=== PATIENT | male | born 1950 | race African-American/Black ===

== ENCOUNTER 2025-04-22 16:16 | Inpatient (IN) | payer OTHER ==
[~2025-04-22] VITALS: Ht 188 cm; Wt 104.4 kg
[~2025-04-22 16:16] MED LIST: insulin
[2025-04-22 16:19] VITALS: O2SAT 100
[2025-04-22 16:49] LABS: BG DEOXYHEMOGLOBIN 24.6 % (0.0-5.0)
[2025-04-22] MEDS: SODIUM CHLORIDE 0.9% 1,000 ML IV ONE (16:55)
[2025-04-22 17:26] LABS: HEMATOCRIT. 42.5 % (42.0-52.0); HEMOGLOBIN. 13.4 g/dL (14.0-18.0); MEAN PLATELET VOLUME 9.1 fl (7.4-10.4); PLATELET 299 x1000/uL (130-400); RED BLOOD CELL COUNT 4.65 mill/uL (4.7-6.1); RED CELL DISTRIBUTION WIDTH 16.0 % (11.6-14.6)
[2025-04-22 17:44] LABS: CREATININE 2.6 mg/dL (0.6-1.3); PROTEIN TOTAL 6.9 g/dL (6.0-8.3); UREA NITROGEN BLOOD 38 mg/dL (9-23)
[2025-04-22 17:45] LABS: ASPARTATE AMINOTRANSFERASE 44 IU/L (<34); TROPONIN I HIGH SENSITIVITY 13 ng/L (3.0-53)
[2025-04-22 17:46] LABS: BILIRUBIN DIRECT 0.2 mg/dL (<=3.0); BILIRUBIN TOTAL 0.5 mg/dL (0.1-1.0); INR 1.1
[2025-04-22] MEDS ORDERED: POTASSIUM CHLORIDE 40 MEQ in SODIUM CHLORIDE 0.9% 230 ML IV PRN ×2 (18:00→21:30)
[2025-04-22] MEDS ORDERED: MAGNESIUM 2 G PREMIX 50 ML IV PRN ×3 (18:00→21:30)
[2025-04-22] MEDS ORDERED: DEXTROSE 50% WATER 50ML SYRINGE IV PRN ×3 (18:00→21:30)
[2025-04-22] MEDS ORDERED: BLOOD SUGAR DIAGNOSTIC STRIP TEST PRN ×3 (18:00→21:30)
[2025-04-22] MEDS ORDERED: CEFTRIAXONE 1GM/50ML 50 ML IV ONE (18:00)
[2025-04-22] MEDS ORDERED: INSULIN REGULAR (DRIP) 100 UNITS in SODIUM CHLORIDE 0.9% 99 ML IV SCH ×2 (18:00→21:30)
[2025-04-22] MEDS: DEXT 5%/LACTATED RINGERS 1,000 ML IV SCH (18:00)
[2025-04-22] MEDS ORDERED: KCL 20MEQ/100ML PREMIX 100 ML IV PRN ×2 (18:00→21:30)
[2025-04-22] MEDS ORDERED: SODIUM PHOSPHATE 15 MMOL in SODIUM CHLORIDE 0.9% 245 ML IV PRN ×2 (18:00→21:30)
[2025-04-22] MEDS ORDERED: INSULIN REGULAR 100U/100ML PMX 100 ML IV SCH (18:30)
[2025-04-22] MEDS: INSULIN REGULAR (DRIP) 100 UNITS in SODIUM CHLORIDE 0.9% 99 ML IV SCH (18:58)
[2025-04-22] MEDS: BLOOD SUGAR DIAGNOSTIC STRIP TEST SCH ×2 (19:08→23:43)
[2025-04-22 19:09] LABS: BAND% 1.0 % (1.0-6.0); LYMPHOCYTES % MANUAL 4.0 % (20.0-50.0); MONOCYTES % MANUAL 6.0 % (2.0-8.0); NEUTROPHILS % MANUAL 89.0 % (45.0-75.0); PLATELET ESTIMATE NORMAL
[2025-04-22] MEDS: CEFTRIAXONE 1GM/50ML 50 ML IV SCH (19:13)
[2025-04-22] MEDS: INSULIN REGULAR (HUMULIN R) 1000UNITS/10ML VIAL IV ONE (19:18)
[2025-04-22] MEDS: LACTATED RINGERS 1,000 ML IV SCH (19:52)
[2025-04-22] MEDS ORDERED: CLONIDINE 0.1MG TABLET PO PRN (21:15)
[2025-04-22] MEDS ORDERED: IPRATROPIUM/ALBUTEROL 0.5-3(2.5)MG/3ML NEB HHN PRN (21:15)
[2025-04-22] MEDS ORDERED: ONDANSETRON HCL 4MG/2ML INJ IV PRN (21:15)
[2025-04-22] MEDS ORDERED: GUAIFENESIN 200MG/10ML SUGAR FREE UDC PO PRN (21:15)
[2025-04-22] MEDS ORDERED: DOCUSATE SODIUM 100MG CAPSULE PO PRN (21:15)
[2025-04-22] MEDS ORDERED: ACETAMINOPHEN 325MG TABLET PO PRN (21:15)
[2025-04-22] MEDS ORDERED: SODIUM CHLORIDE 0.9% 1,000 ML IV SCH ×2 (21:30)
[2025-04-22] MEDS ORDERED: DEXT 5%/0.9% NACL 1,000 ML IV SCH (21:30)
[2025-04-22] MEDS ORDERED: IPRATROPIUM/ALBUTEROL 0.5-3(2.5)MG/3ML NEB NEB PRN (21:30)
[2025-04-22] MEDS ORDERED: BLOOD SUGAR DIAGNOSTIC STRIP TEST SCH (21:30)
[2025-04-22] MEDS ORDERED: AZITHROMYCIN 500MG/250ML 250 ML IV SCH (21:45)
[2025-04-22 22:08] LABS: BG BASE EXCESS -20.7 mmol/L (-2.0-3.0); BG CARBOXYHEMOGLOBIN 0.5 % (0.5-1.5); BG DEOXYHEMOGLOBIN 1.2 % (0.0-5.0); BG FLOW(L/min) 2.00 L/min; BG FRACTION INSPIRED OXYGEN 28; BG HCO3 ACT 4.1 mmol/L (21.0-28.0); BG METHEMOGLOBIN 0.0 % (0.5-1.5); BG OXYGEN SATURATION 98.8 % (94.0-98.0); BG OXYHEMOGLOBIN 98.3 % (94.0-98.0); BG PCO2 10.2 mmHg (35.0-48.0); BG PH 7.219 (7.350-7.450); BG PO2 139.3 mmHg (83.0-108.0); BG SAMPLE SITE RIGHT RADIAL; BG TOTAL HEMOGLOBIN 13.9 g/dL (13.5-17.5); BG VENT MODE NASAL CANNULA
[2025-04-22 23:30] VITALS: BP 126/69; PULSE 95; RESP 18; O2SAT 100
[2025-04-22 23:45] VITALS: PULSE 96; RESP 25; O2SAT 100
[2025-04-22] MEDS: PANTOPRAZOLE SODIUM 40 MG/VIAL IV SCH (23:49)
[2025-04-22] MEDS: ENOXAPARIN 30MG/0.3ML SYR SUBCUT SCH (23:49)
[2025-04-23] VITALS (76 sets, daily range): BP systolic 108–175; BP diastolic 60–158; PULSE 77–98; RESP 11–25; TEMP 36.4–36.974; O2SAT 92–100
[2025-04-23] MEDS: DEXT 5%/0.9% NACL 1,000 ML IV SCH (00:07)
[2025-04-23] MEDS: CEFTRIAXONE 2GM/50ML 50 ML IV SCH (01:50)
[2025-04-23] MEDS: KCL 20MEQ/100ML PREMIX 100 ML IV PRN (02:13)
[2025-04-23 02:15] LABS: TROPONIN I HIGH SENSITIVITY 28 ng/L (3.0-53)
[2025-04-23 02:16] LABS: PHOSPHORUS 4.3 mg/dL (2.5-4.9)
[2025-04-23] MEDS: INSULIN REGULAR (DRIP) 100 UNITS in SODIUM CHLORIDE 0.9% 99 ML IV SCH (04:37)
[2025-04-23 05:13] LABS: BG BASE EXCESS -3.6 mmol/L (-2.0-3.0); BG CARBOXYHEMOGLOBIN 0.2 % (0.5-1.5); BG DEOXYHEMOGLOBIN 1.8 % (0.0-5.0); BG FLOW(L/min) 3.00 L/min; BG FRACTION INSPIRED OXYGEN 32; BG HCO3 ACT 20.4 mmol/L (21.0-28.0); BG METHEMOGLOBIN 0.0 % (0.5-1.5); BG OXYGEN SATURATION 98.2 % (94.0-98.0); BG OXYHEMOGLOBIN 98.0 % (94.0-98.0); BG PCO2 33.6 mmHg (35.0-48.0); BG PH 7.401 (7.350-7.450); BG PO2 104.0 mmHg (83.0-108.0); BG SAMPLE SITE RIGHT RADIAL; BG TOTAL HEMOGLOBIN 13.3 g/dL (13.5-17.5); BG VENT MODE NASAL CANNULA
[2025-04-23 05:48] LABS: HEMATOCRIT. 38.1 % (42.0-52.0); HEMOGLOBIN. 12.2 g/dL (14.0-18.0); MEAN PLATELET VOLUME 8.1 fl (7.4-10.4); PLATELET 249 x1000/uL (130-400); RED BLOOD CELL COUNT 4.32 mill/uL (4.7-6.1); RED CELL DISTRIBUTION WIDTH 15.2 % (11.6-14.6)
[2025-04-23 05:59] LABS: CREATINE KINASE MB FRACTION 27.1 ng/mL (0.5-3.6)
[2025-04-23 06:01] LABS: CREATININE 2.3 mg/dL (0.6-1.3); PROTEIN TOTAL 5.7 g/dL (6.0-8.3)
[2025-04-23 06:03] LABS: ASPARTATE AMINOTRANSFERASE 43 IU/L (<34); BILIRUBIN DIRECT 0.1 mg/dL (<=3.0); TRIGLYCERIDE 74 mg/dL (0-150); UREA NITROGEN BLOOD 36 mg/dL (9-23)
[2025-04-23 06:04] LABS: LDL CHOLESTEROL 66 mg/dL (5-100); T4 FREE 1.00 ng/dL (0.89-1.76)
[2025-04-23 06:05] LABS: BILIRUBIN TOTAL 0.3 mg/dL (0.1-1.0); PHOSPHORUS 2.8 mg/dL (2.5-4.9)
[2025-04-23] MEDS: MULTIVITAMINS,THER W-MINERALS TABLET PO SCH (08:59)
[2025-04-23 09:12] LABS: BG BASE EXCESS -4.0 mmol/L (-2.0-3.0); BG CARBOXYHEMOGLOBIN 0.5 % (0.5-1.5); BG DEOXYHEMOGLOBIN 1.2 % (0.0-5.0); BG FLOW(L/min) 2.00 L/min; BG FRACTION INSPIRED OXYGEN 28; BG HCO3 ACT 19.8 mmol/L (21.0-28.0); BG METHEMOGLOBIN 0.3 % (0.5-1.5); BG OXYGEN SATURATION 98.8 % (94.0-98.0); BG OXYHEMOGLOBIN 98.0 % (94.0-98.0); BG PCO2 32.5 mmHg (35.0-48.0); BG PH 7.403 (7.350-7.450); BG PO2 119.4 mmHg (83.0-108.0); BG SAMPLE SITE RIGHT RADIAL; BG TOTAL HEMOGLOBIN 13.1 g/dL (13.5-17.5); BG VENT MODE NASAL CANNULA
[2025-04-23 10:24] LABS: TROPONIN I HIGH SENSITIVITY 28 ng/L (3.0-53)
[2025-04-23 10:26] LABS: PHOSPHORUS 2.1 mg/dL (2.5-4.9)
[2025-04-23 11:17] LABS: BAND% 4.0 % (1.0-6.0); LYMPHOCYTES % MANUAL 5.0 % (20.0-50.0); MONOCYTES % MANUAL 8.0 % (2.0-8.0); NEUTROPHILS % MANUAL 83.0 % (45.0-75.0); PLATELET ESTIMATE NORMAL
[2025-04-23 13:06] LABS: PHOSPHORUS 1.8 mg/dL (2.5-4.9)
[2025-04-23] MEDS ORDERED: DEXTROSE 50% WATER 50ML SYRINGE IV PRN (16:15)
[2025-04-23] MEDS: BLOOD SUGAR DIAGNOSTIC STRIP TEST SCH (16:30)
[2025-04-23] MEDS: INSULIN LISPRO 100 UNITS/ML SUBCUT SCH (16:56)
[2025-04-23] MEDS: INSULIN GLARGINE 100 UNITS/ML SUBCUT SCH (18:36)
[2025-04-23 19:18] LABS: PHOSPHORUS 1.5 mg/dL (2.5-4.9)
[2025-04-23] MEDS: ATORVASTATIN CALCIUM 40MG TABLET PO SCH (20:43)
[2025-04-23] MEDS: SODIUM CHLORIDE 0.9% 1,000 ML IV SCH (20:48)
[2025-04-23] MEDS: AZITHROMYCIN 500 MG TABLET PO SCH (21:04)
[2025-04-23] MEDS: CEFTRIAXONE 2GM/50ML 50ML IV SCH (22:03)
[2025-04-24] VITALS (18 sets, daily range): BP systolic 135–160; BP diastolic 69–89; PULSE 73–99; RESP 14–26; TEMP 36.3–36.8; O2SAT 95–98
[2025-04-24] MEDS: POTASSIUM-SODIUM PHOSPHATE POWDER PACKET PO NR (03:11)
[2025-04-24] MEDS: MAGNESIUM/ALUMINUM HYDROXIDE/SIMETHICONE 30ML UDC PO PRN (05:22)
[2025-04-24] MEDS: ACETAMINOPHEN 325MG TABLET PO PRN (05:22)
[2025-04-24] MEDS ORDERED: DEXTROSE 50% WATER 50ML SYRINGE IV PRN (07:45)
[2025-04-24] MEDS: ASPIRIN 81MG TABLET PO SCH (11:46)
[2025-04-24] MEDS ORDERED: CHLO10TA19 PO (12:17)
[2025-04-24] MEDS: CHLORPROMAZINE HCL 10 MG TABLET PO SCH (12:25)
[2025-04-24 13:00] LABS: CREATININE 1.1 mg/dL (0.6-1.3); UREA NITROGEN BLOOD 13 mg/dL (9-23)
[2025-04-24] MEDS ORDERED: INSULIN GLARGINE 100 UNITS/ML SUBCUT SCH (22:00)
== END 2025-04-24 15:20 | disposition home or self-care (01) | DRG 637 ==
LOC: ER 16:16 → EDBEDREQ 20:24 → EDBEDREQTM 20:24 → ENRESERV 22:36 → MICUSO 23:10 → 6WST 04-24 03:43
PROVIDERS: ADMIT Internal Medicine; ATTEND Internal Medicine
DX: E10.10 Type 1 diabetes mellitus with ketoacidosis without coma (principal); G92.8 Other toxic encephalopathy; N17.9 Acute kidney failure, unspecified; E83.41 Hypermagnesemia; D64.9 Anemia, unspecified; D72.829 Elevated white blood cell count, unspecified; E10.22 Type 1 diabetes mellitus with diabetic chronic kidney disease; N18.9 Chronic kidney disease, unspecified; E87.5 Hyperkalemia; R74.8 Abnormal levels of other serum enzymes; E78.00 Pure hypercholesterolemia, unspecified; Z79.4 Long term (current) use of insulin; Z91.148 Patient's other noncompliance with medication regimen for other reason; Z79.899 Other long term (current) drug therapy
CPT/HCPCS: 36415; 36600; 71045; 76770; 80048; 80051; 80061; 80076; 82010; 82140; 82375; 82550; 82553; 82803; 82805; 82962; 83036; 83605; 83735; 83880; 83930; 84100; 84145; 84439; 84443; 84484; 85025; 85379; 87076; 93005; 93970; 96365; 97166; 99291; A4606; J0696; J1650; J1815; J2470; J3480; J7030; J7050; J7120; J7121; Q0161